=== PATIENT | male | born 1975 | race American Indian/Alaskan Native ===

== ENCOUNTER 2021-07-26 10:05 | Emergency (ER) | payer SELFPAY ==
[2021-07-26 10:33] VITALS: BP 146/98
--- NOTE | 2021-07-26 11:20 | Emergency Department Report ---
ED General Adult HPI - General Chief complaint: Medical Clearance Stated complaint: THYROID/BP Time Seen by Provider: 07/26/21 11:00 Source: patient Mode of arrival: Ambulatory Limitations: No Limitations - History of Present Illness Initial comments: Patient presents with a several week history of shortness of breath that is worsened over the last 2 days. For the last 2 days he has actually had orthopnea and states that he has to sleep propped up. He reports exertional dyspnea. He has noticed swelling in his hands, feet, and face. He does not k now what is going on. He does take a diuretic to help control his blood pressure. That dose has not changed. He does not know why he seems to be "getting puffy." He is concerned that he could be retaining fluid. Patient has no chest pain. He states that he just does not feel right. There has been no cough. He has had no vomiting. He denies urinary symptoms. While in residential, patient did have a thyroid disorder diagnosed. He underwent radiation therapy. He was told that that could also damage his heart and he was not sure if he had some problem with his heart because of the radiation. - Related Data Previous Rx's Medication Instructions Recorded Last Taken Type Furosemide [Lasix] 20 mg PO QDAY #7 tablet 07/26/21 Unknown Rx Potassium Chloride [K-Dur] 20 meq PO QDAY #7 tab 07/26/21 Unknown Rx Allergies Allergy/AdvReac Type Severity Reaction Status Date / Time morphine Allergy Shortness Verified 07/26/21 10:32 of Breath ED Review of Systems ROS: Stated complaint: THYROID/BP Other details as noted in HPI Comment: All other systems reviewed and negative Constitutional: denies: fever Eyes: denies: vision change ENT: denies: throat pain Respiratory: see HPI Cardiovascular: as per HPI Endocrine: unexplained weight gain Gastrointestinal: denies: abdominal pain Genitourinary: denies: dysuria Musculoskeletal: denies: back pain Skin: denies: rash Neurological: denies: headache Hematological/Lymphatic: denies: easy bruising ED Past Medical Hx - Past Medical History Hx Hypertension: Yes Hx Psychiatric Treatment: Yes (PTSD) Additional medical history: thyroid - Surgical History Past Surgical History?: Yes Additional Surgical History: HERNIA REPAIR - Family History Family history: hypertension - Social History Smoking Status: Current Every Day Smoker (We discussed tobacco cessation) Substance Use Type: Alcohol, Marijuana - Medications Home Medications: Home Medications Medication Instructions Recorded Confirmed Last Taken Type Furosemide [Lasix] 20 mg PO QDAY #7 tablet 07/26/21 Unknown Rx Potassium Chloride [K-Dur] 20 meq PO QDAY #7 tab 07/26/21 Unknown Rx ED Physical Exam - General Limitations: No Limitations, Other (Pulse ox noted and normal) General appearance: alert, in no apparent distress - Head Head exam: Present: atraumatic, normocephalic - Eye Eye exam: Present: normal appearance, PERRL, EOMI. Absent: scleral icterus - ENT ENT exam: Present: normal orophraynx, normal external ear exam - Neck Neck exam: Present: normal inspection. Absent: meningismus - Respiratory Respiratory exam: Present: normal lung sounds bilaterally. Absent: respiratory distress - Cardiovascular Cardiovascular Exam: Present: regular rate, normal rhythm. Absent: clicks - GI/Abdominal GI/Abdominal exam: Present: soft, distended - Extremities Exam Extremities exam: Present: normal capillary refill, pedal edema (2+ pitting). Absent: calf tenderness - Back Exam Back exam: Absent: CVA tenderness (R), CVA tenderness (L) - Neurological Exam Neurological exam: Present: alert, oriented X3, CN II-XII intact, normal gait. Absent: motor sensory deficit - Psychiatric Psychiatric exam: Present: normal affect, normal mood - Skin Skin exam: Present: warm, dry ED Course Vital Signs 07/26/21 10:31 Temperature 98.2 F Pulse Rate 57 L Respiratory 18 Rate Blood Pressure 146/98 O2 Sat by Pulse 97 Oximetry - Reevaluation(s) Reevaluation #1: 07/26/21 11:18 Labs and x-rays ordered. Old records reviewed. Reevaluation #2: 07/26/21 13:32 UA is still pending. It is unlikely that this represents any type of urinary tract infection. Given the fact that the patient has normal renal function, I will not have him wait for urine results. I will discontinue the urine. Patient was discharged. ED Medical Decision Making - Lab Data Result diagrams: 07/26/21 11:31 07/26/21 11:31 - Medical Decision Making Patient presents with ongoing edema. This is in the setting of hypertension. He does eat salt. We have had a discussion about this. He had reported some orthopnea as well as shortness of breath but does not have evidence of pulmonary edema. There was no clinical evidence of ACS. He does not appear to be septic or toxic. Patient does not clinically have any evidence of pneumonia or renal failure. We discussed lifestyle changes including a low-sodium diet. We discussed follow-up. Critical Care Time: No Critical care attestation.: If time is entered above; I have spent that time in minutes in the direct care of this critically ill patient, excluding procedure time. ED Disposition Clinical Impression: Orthopnea, Dependent edema Disposition: 01 HOME / SELF CARE / HOMELESS Is pt being admited?: No Condition: Stable Instructions: Shortness of Breath, Adult, [id number], Peripheral Edema Additional Instructions: Elevate the feet. Avoid salt. Drink water. Return for problems. Follow-up with your regular doctor for repeat evaluation. Take the medications as prescribed. Prescriptions: Potassium Chloride [K-Dur] 20 meq PO QDAY #7 tab Furosemide [Lasix] 20 mg PO QDAY #7 tablet Referrals: GAYLA ROWE MD [Primary Care Provider] - 3-5 Days DL JAIN MD [Staff Physician] - 3-5 Days
--- NOTE | 2021-07-26 11:43 | XRay Report ---
XR chest routine 2V INDICATION / CLINICAL INFORMATION: orthopnea COMPARISON: None available. FINDINGS: SUPPORT DEVICES: None. HEART / MEDIASTINUM: No significant abnormality. LUNGS / PLEURA: Lungs are clear. Costophrenic sulci are sharp. No pneumothorax. ADDITIONAL FINDINGS: No significant additional findings. IMPRESSION: 1. No acute findings. Signer Name: Jose Gaytan MD Signed: 07/26/2021 11:38 AM Workstation Name: [employer]
[2021-07-26 12:24] LABS: Hematocrit 39.4 % (35.5-45.6); Hemoglobin 13.8 gm/dl (11.8-15.2); Mean Corpuscular HGB Conc 35 % (32-34); Mean Corpuscular Volume 96 fl (84-94); Platelet Count 292 K/mm3 (140-440); Red Blood Count 4.11 M/mm3 (3.65-5.03); Red Cell Distribution Width 15.3 % (13.2-15.2)
[2021-07-26 12:26] LABS: BUN/Creatinine Ratio 6; Blood Urea Nitrogen 9 mg/dL (9-20); Calcium 9.1 mg/dL (8.4-10.2); Hemolysis Index 8
[2021-07-26 13:30] LABS: Bilirubin,Urine NEG (Negative); Blood,Urine SM (Negative); Color,Urine Yellow (Yellow); Protein,Urine <15 mg/dL mg/dL (Negative); RBC,Urine < 1.0 /HPF (0.0-6.0); Urobilinogen,Urine < 2.0 mg/dL (<2.0)
[2021-07-26 13:55] LABS: WBC,Urine < 1.0 /HPF (0.0-6.0)
== END 2021-07-26 14:04 | disposition home or self-care (01) ==
LOC: ED 10:05
DX: R06.01 Orthopnea (principal); R06.02 Shortness of breath; R60.0 Localized edema; I10 Essential (primary) hypertension; F17.200 Nicotine dependence, unspecified, uncomplicated; F12.90 Cannabis use, unspecified, uncomplicated; Z88.5 Allergy status to narcotic agent; Z79.899 Other long term (current) drug therapy
CPT/HCPCS: 36415; 71046; 80048; 81001; 85027; 99283

== ENCOUNTER 2021-07-28 08:13 | Emergency (ER) | payer SELFPAY ==
[2021-07-28] MEDS ORDERED: ONDANSETRON 4 MG/2 ML INJ ONE (08:21)
[2021-07-28] MEDS ORDERED: SODIUM CHLORIDE 0.9% 1000 ML 1,000 ML ONE (08:21)
[2021-07-28] MEDS ORDERED: SODIUM CHLORIDE 0.9% 1000 ML 1,000 ML IV ONE (08:25)
[2021-07-28] MEDS ORDERED: ONDANSETRON 4 MG/2 ML INJ IV ONE (08:25)
--- NOTE | 2021-07-28 08:26 | Emergency Department Report ---
ED General Adult HPI - General Stated complaint: OVER DOSE Time Seen by Provider: 07/28/21 08:24 - History of Present Illness Initial comments: Patient was brought in by ambulance secondary to an overdose. Patient has no recollection of the events. EMS states that they were called to the house. The patient's family was there. Apparently the patient had been in the bathroom for a couple of hours. The family had intermittently heard sounds coming from the bathroom. There were sounds followed by periods of silence. What led to EMS call was that the patient had apparently fallen. The family heard the sounds coming from the bathroom. Then there was a moment of silence. Then they heard a thud like somebody had fallen. They went in the restroom and found him slumped over the bathtub. He was unresponsive. Police and EMS were called. Police were reportedly doing CPR when EMS arrived on scene. According to EMS, the patient had a pulse in the 40s that was weak. They immediately started an IV. They did put a nasopharyngeal trumpet in. Oxygen was supplied. Patient was given Narcan 2 mg. He was also found to be hypoglycemic and was getting some D10. He started to wake up. He was combative. He pulled the IV. He then started to throw up. Patient is still vomiting and retching upon arrival here. He is still combative and agitated. He is confused. He does not know what happened. He does not remember any of these events. Apparently he had admitted at some point to EMS that he had smoked heroin. There was also a baggy of a white powder that the police had and reportedly the patient still has paraphernalia in his jeans pockets. Patient states that he was not trying to kill himself. He does state that he is on propranolol. He does have hypertension. He also takes Zoloft. - Related Data Previous Rx's Medication Instructions Recorded Last Taken Type Furosemide [Lasix] 20 mg PO QDAY #7 tablet 07/26/21 Unknown Rx Potassium Chloride [K-Dur] 20 meq PO QDAY #7 tab 07/26/21 Unknown Rx Metoclopramide [Reglan] 10 mg PO ACHS PRN #60 tablet 07/28/21 Unknown Rx Allergies Allergy/AdvReac Type Severity Reaction Status Date / Time morphine Allergy Shortness Verified 07/26/21 10:32 of Breath ED Review of Systems ROS: Stated complaint: OVER DOSE Other details as noted in HPI Comment: Unobtainable due to pts medical conditions (Patient is still confused and uncooperative) ED Past Medical Hx - Past Medical History Hx Hypertension: Yes Hx Psychiatric Treatment: Yes (PTSD) Additional medical history: thyroid - Surgical History Additional Surgical History: HERNIA REPAIR - Family History Family history: hypertension - Social History Smoking Status: Current Every Day Smoker (We discussed tobacco cessation) Substance Use Type: Alcohol, Heroin, Marijuana - Medications Home Medications: Home Medications Medication Instructions Recorded Confirmed Last Taken Type Furosemide [Lasix] 20 mg PO QDAY #7 tablet 07/26/21 Unknown Rx Potassium Chloride [K-Dur] 20 meq PO QDAY #7 tab 07/26/21 Unknown Rx Metoclopramide [Reglan] 10 mg PO ACHS PRN #60 tablet 07/28/21 Unknown Rx ED Physical Exam - General Limitations: Altered Mental Status (Confused), Physical Limitation (Uncoop erative), Other (Pulse ox noted and normal) General appearance: other (Somnolent) - Head Head exam: Present: atraumatic, normocephalic. Absent: normal inspection - Eye Eye exam: Present: normal appearance, PERRL, EOMI. Absent: scleral icterus - ENT ENT exam: Present: normal orophraynx, normal external ear exam - Neck Neck exam: Present: normal inspection. Absent: meningismus - Respiratory Respiratory exam: Present: normal lung sounds bilaterally. Absent: respiratory distress - Cardiovascular Cardiovascular Exam: Present: regular rate, normal rhythm - GI/Abdominal GI/Abdominal exam: Present: soft. Absent: distended, tenderness - Extremities Exam Extremities exam: Present: normal capillary refill - Back Exam Back exam: Present: normal inspection - Neurological Exam Neurological exam: Present: altered (Somnolent), CN II-XII intact, reflexes normal. Absent: motor sensory deficit - Psychiatric Psychiatric exam: Present: other (Confused with intermittent agitation) - Skin Skin exam: Present: warm, diaphoretic ED Course Vital Signs 07/28/21 07/28/21 07/28/21 08:14 08:22 08:30 Pulse Rate 70 77 60 Respiratory 16 16 15 Rate Blood Pressure 122/90 Blood Pressure 140/80 [Right] O2 Sat by Pulse 96 Oximetry 07/28/21 07/28/21 07/28/21 08:46 09:00 09:16 Pulse Rate 59 L 50 L 49 L Respiratory 16 11 L 9 L Rate Blood Pressure 127/96 121/85 121/85 Blood Pressure [Right] O2 Sat by Pulse 97 97 Oximetry 07/28/21 07/28/21 07/28/21 09:30 09:45 10:00 Pulse Rate 52 L Respiratory 8 L 15 13 Rate Blood Pressure 121/85 133/85 129/101 Blood Pressure [Right] O2 Sat by Pulse 99 97 Oximetry 07/28/21 07/28/21 07/28/21 10:16 10:30 10:46 Pulse Rate 70 45 L 39 L Respiratory 13 11 L 8 L Rate Blood Pressure 129/101 129/101 135/90 Blood Pressure [Right] O2 Sat by Pulse 97 98 Oximetry 07/28/21 07/28/21 07/28/21 11:00 11:16 11:30 Pulse Rate 47 L 46 L 35 L Respiratory 12 10 L 9 L Rate Blood Pressure 127/80 132/107 132/107 Blood Pressure [Right] O2 Sat by Pulse 98 97 98 Oximetry 07/28/21 07/28/21 07/28/21 11:46 12:00 12:16 Pulse Rate 34 L 41 L 37 L Respiratory 7 L 12 10 L Rate Blood Pressure 122/74 113/75 142/100 Blood Pressure [Right] O2 Sat by Pulse 97 96 98 Oximetry 07/28/21 07/28/21 07/28/21 12:30 13:00 13:26 Pulse Rate 42 L 67 49 L Respiratory 10 L 14 11 L Rate Blood Pressure 142/100 142/100 147/102 Blood Pressure [Right] O2 Sat by Pulse 96 99 Oximetry 07/28/21 07/28/21 13:30 13:46 Pulse Rate 39 L 34 L Respiratory 8 L 12 Rate Blood Pressure 147/102 140/98 Blood Pressure [Right] O2 Sat by Pulse 99 99 Oximetry - Reevaluation(s) Reevaluation #1: 07/28/21 08:26 EMS was met upon arrival. Patient is awake and conversant. He is not cooperat maria luisa. Patient was placed on a monitor. IV was ordered along with Accu-Chek and labs. Zofran and fluids were ordered. Old records reviewed. Reevaluation #2: 07/28/21 08:37 Glucose was noted. Reevaluation #3: 07/28/21 08:51 Patient is more awake now. He is reporting that he used fentanyl with cocaine. Reevaluation #4: 07/28/21 09:39 Labs are noted. Oral potassium will be ordered once the patient is more awake. IV potassium has been ordered. He is still sedate and becoming bradycardic. Narcan has been ordered to be repeated. 07/28/21 11:21 Patient continues to be bradycardic. He does complain of feeling lightheaded when he stands, but he is also somnolent. I believe this is likely secondary to his lifestyle and use of drugs. He is easily arousable. He is not hypoxic. Is not hypotensive. I do not believe he requires Narcan. We will treat his hypokalemia and see if the QT improves and see if his bradycardia also improves. Reevaluation #5: 07/28/21 12:24 Patient remains bradycardic. He still is not hypotensive. Potassium has completed. Will attempt ambulation and oral potassium administration. ED Medical Decision Making - Lab Data Result diagrams: 07/28/21 08:54 Rhythm strip: Sinus bradycardia without ectopy. Monitor observed in seconds. - EKG Data -: EKG Interpreted by Wy - EKG Data 07/28/21 11:21 1036-EKG shows sinus bradycardia at 43. QT is prolonged at 530. Rate is 43. QRS is normal at 114. QT corrected is 530. Patient has no ST elevation to suggest infarct. There is diffuse T wave flattening. He does not have any evidence of ectopy. There is no old EKG for comparison. - Medical Decision Making Patient presented as a drug overdose. He had been resuscitated. He was found to be persistently bradycardic and nauseous. He was given numerous antiemetic agents, but then refused to eat. He had been hypoglycemic and this was monitored. Patient was hydrated here. He was observed and his hypokalemia was addressed. He did not appear to be septic. There is no obvious infectious pathology. I did not appreciate any visible sign of trauma suggestive of subdural or epidural hematomas or closed head injury. He is not hypotensive. He does get lightheaded upon walking. Whether this is related to his drug abuse or whether this is related to bradycardia is not known. He is athletic. A relative bradycardia would not be surprising. Critical Care Time: No Critical care attestation.: If time is entered above; I have spent that time in minutes in the direct care of this critically ill patient, excluding procedure time. ED Disposition Clinical Impression: Opioid abuse, Cocaine abuse, Hypokalemia, Persistent vomiting Accidental overdose Qualifiers: Encounter type: initial encounter Qualified Code(s): T50.901A - Poisoning by unspecified drugs, medicaments and biological substances, accidental (unint entional), initial encounter Disposition: HOME / SELF CARE / HOMELESS Is pt being admited?: No Condition: Stable Instructions: Accidental Drug Poisoning, Adult, Substance Use Disorder and Mental Illness, Nausea and Vomiting, Adult, Potassium Content of Foods, Opioid Use Disorder Additional Instructions: Drink plenty water. Return for problems. Go to Narcotics Anonymous and work on getting off of opioids and other illicit drugs. Follow-up with your family doctor or the referral physician for recheck and further management. Prescriptions: Metoclopramide [Reglan] 10 mg PO ACHS PRN #60 tablet PRN Reason: Nausea Referrals: PRIMARY CAREMD [Primary Care Provider] - 3-5 Days SINA POE MD [Staff Physician] - 3-5 Days
[2021-07-28 09:32] LABS: BUN/Creatinine Ratio 3; Blood Urea Nitrogen 5 mg/dL (9-20); Calcium 8.9 mg/dL (8.4-10.2); Hemolysis Index 11
[2021-07-28] MEDS ORDERED: NALOXONE 0.4 MG/1 ML INJ IV ONE (09:38)
[2021-07-28] MEDS ORDERED: METOCLOPRAMIDE 10 MG/2 ML INJ IV ONE (09:47)
[2021-07-28] MEDS: POTASSIUM CHLORIDE 10 MEQ 10 MEQ/100 ML BAG IV SCH ×2 (10:15→11:41)
[2021-07-28] MEDS ORDERED: NICOTINE 21 MG/24 HR PATCH TD ONE ×2 (12:07→14:00)
[2021-07-28] MEDS ORDERED: POTASSIUM CHLORIDE ER 20 MEQ TAB PO ONE (12:07)
[2021-07-28] MEDS ORDERED: PROCHLORPERAZINE EDISYLATE 10 MG/2 ML VIAL IV ONE (12:56)
[2021-07-28] MEDS ORDERED: POTASSIUM CHLORIDE 10 MEQ 10 MEQ/100 ML BAG IV SCH (13:00)
[2021-07-28] MEDS ORDERED: D5W/0.45% NACL 1,000 ML IV SCH (13:00)
--- NOTE | 2021-07-28 13:47 | Cat Scan Report ---
CT HEAD WITHOUT CONTRAST INDICATION / CLINICAL INFORMATION: fall, persistent vomiting, dizzy, trauma. TECHNIQUE: All CT scans at this location are performed using CT dose reduction for ALARA by means of automated exposure control. COMPARISON: None available. FINDINGS: HEMORRHAGE: None. EXTRA-AXIAL SPACES: Normal in size and morphology for the patient's age. VENTRICULAR SYSTEM: Normal in size and morphology for the patient's age. CEREBRAL PARENCHYMA: No significant abnormality. No acute territorial infarct. MIDLINE SHIFT / HERNIATION: None. CEREBELLUM / BRAINSTEM: No significant abnormality. ORBITS: Normal as visualized SOFT TISSUES: No significant abnormality. SKULL: No significant abnormality. PARANASAL SINUSES / MASTOID AIR CELLS: Normal as visualized ADDITIONAL FINDINGS: None. IMPRESSION: 1. No acute intracranial abnormality. Signer Name: Gordo Duque DO Signed: 07/28/2021 1:42 PM Workstation Name: [id number]
[2021-07-28 14:32] VITALS: BP 137/84
--- NOTE | 2021-07-29 10:13 | Electrocardiograph Report ---
[facility] Test Date: 2021-07-28 Test Time: 10:36:16 Pat Name: ROBERT STUBBS Department: Room: Gender: M Insole Buffer: KAMARI : 1975 Requested By: MARTIN VIDALES Order Number: [id number] Reading MD: Osmany Malone Measurements Intervals [place] Rate: 43 P: 0 AR: 69 QRS: 78 QRSD: 114 T: 51 QT: 623 QTc: 530 Interpretive Statements Sinus bradycardia Prolonged QT interval No previous ECG available for comparison Electronically Signed On 07-29-2021 10:13:25 EST by Osmany Malone
== END 2021-07-28 14:30 | disposition home or self-care (01) ==
LOC: ED 08:13
DX: F11.10 Opioid abuse, uncomplicated (principal); F14.10 Cocaine abuse, uncomplicated; E87.6 Hypokalemia; R11.15 Cyclical vomiting syndrome unrelated to migraine; T65.91XA Toxic effect of unspecified substance, accidental (unintentional), initial encounter; I10 Essential (primary) hypertension; F17.200 Nicotine dependence, unspecified, uncomplicated; F12.90 Cannabis use, unspecified, uncomplicated; Z98.890 Other specified postprocedural states; Y92.89 Other specified places as the place of occurrence of the external cause
CPT/HCPCS: 36415; 70450; 80048; 82962; 83735; 93005; 93010; 96361; 96365; 96367; 96375; 99284; J0780; J2310; J2405; J2765; J3480; J7030; J7070; Q0162